=== PATIENT | female | born 1975 | race Caucasian/White ===

== ENCOUNTER 2016-10-26 21:46 | Emergency (ER) | payer OTHER ==
[~2016-10-26] VITALS: Ht 160 cm; Wt 68.6 kg
[~2016-10-26 21:46] MED LIST: AZIT250T PO; BENZ100C PO; BUPR1PAT TD; HYDR-882 PO
[2016-10-26 21:57] VITALS: BP 122/83
[2016-10-26] MEDS ORDERED: DIPHENHYDRAMINE 25 MG CAPSULE PO ONE (22:30)
[2016-10-26] MEDS ORDERED: FAMOTIDINE 20 MG TABLET PO ONE (22:30)
[2016-10-26] MEDS ORDERED: DIPHENHYDRAMINE 50 MG CAPSULE ONE (22:37)
[2016-10-26] MEDS ORDERED: FAMOTIDINE 20 MG TABLET ONE (22:38)
== END 2016-10-26 23:23 | disposition home or self-care (01) ==
LOC: ED 23:10
DX: T78.3XXA Angioneurotic edema, initial encounter (principal); R22.0 Localized swelling, mass and lump, head; M54.30 Sciatica, unspecified side; G89.29 Other chronic pain; Z98.51 Tubal ligation status; X58.XXXA Exposure to other specified factors, initial encounter; Y93.89 Activity, other specified; Y99.8 Other external cause status; Y92.89 Other specified places as the place of occurrence of the external cause
CPT/HCPCS: 99284; J7512; Q0163

== ENCOUNTER 2017-05-24 15:22 | Emergency (ER) | payer OTHER ==
[~2017-05-24] VITALS: Ht 157.5 cm; Wt 71.1 kg
[~2017-05-24 15:22] MED LIST changes: -BUPR1PAT TD; +BUPR1PAT7 TD
[2017-05-24] MEDS ORDERED: MECLIZINE CHEWABLE 25 MG TAB ONE (15:40)
[2017-05-24] MEDS ORDERED: MECLIZINE CHEWABLE 25 MG TAB PO ONE (16:00)
[2017-05-24 16:10] LABS: HEMATOCRIT 35.2 % (34.6-47.8); HEMOGLOBIN 11.6 g/dL (11.7-16.4); WHITE BLOOD COUNT 7.1 x10^3/uL (3.4-10)
[2017-05-24 16:17] LABS: BLOOD UREA NITROGEN 13 mg/dL (7-18)
[2017-05-24 18:54] LABS: HCG UR LOT HCG7030192
[2017-05-24 19:01] LABS: PATH.CAST-FLAG NOT PRESENT; SPERM-FLAG NOT PRESENT; SRC-FLAG NOT PRESENT; XTAL-FLAG NOT PRESENT; YLC-FLAG NOT PRESENT
[2017-05-24 19:02] LABS: HCG UR OBC PASS
[2017-05-24 19:25] VITALS: BP 127/80
== END 2017-05-24 19:50 | disposition home or self-care (01) ==
LOC: ED 19:44
DX: R42 Dizziness and giddiness (principal); R11.0 Nausea
CPT/HCPCS: 36415; 80048; 81001; 81025; 82040; 84443; 85025; 87086; 93005; 99285

== ENCOUNTER 2020-01-27 06:44 | Emergency (ER) | payer OTHER ==
[~2020-01-27] VITALS: Ht 157.5 cm; Wt 73.3 kg
[~2020-01-27 06:44] MED LIST changes: +HYDR-3653 PO; -HYDR-882 PO
[2020-01-27 06:46] VITALS: BP 150/97
[2020-01-27] MEDS ORDERED: KETOROLAC 30 MG/1 ML IM ONE (07:00)
[2020-01-27] MEDS ORDERED: DIAZEPAM 5 MG TABLET PO ONE (07:00)
[2020-01-27] MEDS ORDERED: DIAZEPAM 5 MG TABLET ONE (07:23)
[2020-01-27] MEDS ORDERED: KETOROLAC 60 MG/2 ML ONE (07:23)
--- NOTE | 2020-01-27 07:30 | NUR ---
PT WITH C/O OFF INCREASING LUMBAR BACK PAIN OVER THE PAST WEEK. PT ATTEMPTED TO LIFT A BOX AT WORK APPROX 70 LBS. PT WITH KNOWN "BULDGING DISC" ISSUES PER HER REPORT. ER PROVIDER AT BEDSIDE, ORDERS RECIEVED. PT MEDICATED PER OCT. TO IMAGING AT THIS TIME
== END 2020-01-27 09:05 | disposition home or self-care (01) ==
LOC: ED 07:15
DX: S16.1XXA Strain of muscle, fascia and tendon at neck level, initial encounter (principal); S39.012A Strain of muscle, fascia and tendon of lower back, initial encounter; R05 Cough; X58.XXXA Exposure to other specified factors, initial encounter; Y93.89 Activity, other specified; Y92.89 Other specified places as the place of occurrence of the external cause; Y99.8 Other external cause status
CPT/HCPCS: 72050; 72110; 96372; 99284; J1885

== ENCOUNTER 2020-02-01 07:10 | Emergency (ER) | payer SELFPAY ==
[~2020-02-01] VITALS: Ht 157.5 cm; Wt 74.1 kg
[2020-02-01 07:16] VITALS: BP 139/66
--- NOTE | 2020-02-01 07:25 | NUR ---
first contact with pt. pt c/o LBP x2 weeks, was seen here 1 week ago for same. denies injury. pt's aox4. resps even and unlabored.
[2020-02-01] MEDS ORDERED: OXYcodone/APAP 5/325MG TABLET ONE (07:47)
[2020-02-01] MEDS ORDERED: DIAZEPAM 5 MG TABLET ONE (07:47)
--- NOTE | 2020-02-01 07:52 | NUR ---
pt medicated per emar. pt tolerated well.
[2020-02-01] MEDS ORDERED: OXYcodone/APAP 5/325MG TABLET PO ONE (08:00)
[2020-02-01] MEDS ORDERED: KETOROLAC 30 MG/1 ML IM ONE (08:00)
[2020-02-01] MEDS ORDERED: DIAZEPAM 5 MG TABLET PO ONE (08:00)
[2020-02-01] MEDS ORDERED: KETOROLAC 30 MG/1 ML ONE (08:05)
--- NOTE | 2020-02-01 08:13 | NUR ---
pt medicated per emar. pt tolerated well. pt's aox4. resps even and unlabored.
--- NOTE | 2020-02-01 08:46 | NUR ---
Patient given discharge instructions and they have confirmed that they understand the instructions. Patient ambulatory with steady gait.
== END 2020-02-01 08:46 | disposition home or self-care (01) ==
LOC: ED 07:26
DX: S39.012A Strain of muscle, fascia and tendon of lower back, initial encounter (principal); M54.42 Lumbago with sciatica, left side; G89.29 Other chronic pain; Z98.51 Tubal ligation status; X58.XXXA Exposure to other specified factors, initial encounter; Y93.89 Activity, other specified; Y92.89 Other specified places as the place of occurrence of the external cause; Y99.8 Other external cause status
CPT/HCPCS: 96372; 99284; J1885; J7512

== ENCOUNTER 2020-06-12 14:21 | Emergency (ER) | payer SELFPAY ==
[~2020-06-12] VITALS: Ht 157.5 cm; Wt 79.6 kg
[2020-06-12 14:32] VITALS: BP 185/103
[2020-06-12] MEDS ORDERED: DIAZEPAM 5 MG TABLET PO ONE (15:00)
[2020-06-12] MEDS ORDERED: KETOROLAC 30 MG/1 ML IM ONE (15:00)
[2020-06-12] MEDS ORDERED: HYDROcodone/APAP 5/325 TABLET PO ONE (15:00)
[2020-06-12] MEDS ORDERED: OXYcodone/APAP 5/325MG TABLET ONE (15:55)
[2020-06-12] MEDS ORDERED: DIAZEPAM 5 MG TABLET ONE (15:55)
[2020-06-12] MEDS ORDERED: KETOROLAC 30 MG/1 ML ONE (15:55)
--- NOTE | 2020-06-12 16:00 | NUR ---
LOW BACK PAIN RADIATING TO RIGHT LEG SINCE JANUARY 19 AFTER LIFTING HEAVY BOX FROM [employer]. PT STATES SINCE RETURNING TO WORK 2 WEEKS AGO PAIN WORSENING ESPECIALLY TODAY No bowel/bladder or distal cms irregularities
[2020-06-12] MEDS ORDERED: HYDROcodone/APAP 5/325 TABLET ONE ×2 (16:06→16:11)
--- NOTE | 2020-06-12 16:51 | NUR ---
WITH REASSESSMENT PAIN IMPROVED TO 3/10 REVIEWED POC (MEDICATIONS, ICE/HEAT, CORE STRENGTHENING EXERCISES)
== END 2020-06-12 16:54 | disposition home or self-care (01) ==
LOC: ED 16:30
DX: S39.012A Strain of muscle, fascia and tendon of lower back, initial encounter (principal); M51.16 Intervertebral disc disorders with radiculopathy, lumbar region; X58.XXXA Exposure to other specified factors, initial encounter; Y93.89 Activity, other specified; Y92.89 Other specified places as the place of occurrence of the external cause; Y99.8 Other external cause status
CPT/HCPCS: 72110; 96372; 99283; J1885